=== PATIENT | female | born 1950 | race Caucasian/White ===

== ENCOUNTER 2018-09-09 09:05 | Outpatient (CLI) | payer BC ==
[2018-09-09 10:05] LABS: Mean Corpuscular HGB CONC 33.9 g/dL (32.0-36.0); Mean Corpuscular Hemoglobin 31.9 pg (27.0-31.0); Mean Platelet Volume 7.5 fL (7.4-10.4); Platelet Count 252 thou/uL (130-400); RBC Distribution Width 11.6 % (11.5-14.5); Red Blood Cell (RBC) Count 4.07 mill/uL (4.20-5.40); White Blood Cell (WBC) Count 5.8 thou/uL (4.8-10.8)
[2018-09-09 10:18] LABS: Anion Gap 13 mmol/L (10-20); BUN (Urea Nitrogen) 25 mg/dL (9.8-20.1); Calc. Creatinine Clearance 0 mL/min (70-130); Calcium 9.4 mg/dL (7.8-10.44); Carbon Dioxide 28 mmol/L (23-31); Chloride 104 mmol/L (98-107); Estimated GFR-MDRD 81; Glucose 91 mg/dL (80-115); Potassium 4.1 mmol/L (3.5-5.1); Sodium 141 mmol/L (136-145)
--- NOTE | 2018-09-10 07:34 | EKG ---
Test Reason : Blood Pressure : / mmHG Vent. Rate : 081 BPM Atrial Rate : 081 BPM P-R Int : 158 ms QRS Dur : 084 ms QT Int : 374 ms P-R-T Axes : 078 052 038 degrees QTc Int : 434 ms Normal sinus rhythm Normal ECG When compared with ECG of 01-AUG-2010 08:14, Nonspecific T wave abnormality, improved in Inferior leads Nonspecific T wave abnormality no longer evident in Lateral leads Confirmed by SHAHNAZ NEVES ([id number]) on 09/10/2018 7:33:34 AM Referred By: QUAN Confirmed By:SHAHNAZ NEVES
== END 2018-09-09 09:06 | disposition home or self-care (01) ==
LOC: LABBT 09:05
PROVIDERS: ATTEND Neurological Surgery
DX: Z01.818 Encounter for other preprocedural examination (principal); M48.062 Spinal stenosis, lumbar region with neurogenic claudication
CPT/HCPCS: 80048; 85027; 93005; 93010

== ENCOUNTER 2018-09-17 06:20 | Inpatient (IN) | payer BC ==
[2018-09-17] MEDS ORDERED: CEFAZOLIN 2 GM/50 ML BAG ONE (06:43)
[2018-09-17] MEDS ORDERED: Fentanyl 100 MCG/2 ML VIAL ONE ×2 (07:00)
[2018-09-17] MEDS ORDERED: Midazolam HCl 2 mg/2 ml Vial ONE (07:24)
[2018-09-17] MEDS ORDERED: HYDROmorphone 2 MG/ML VIAL ONE (07:25)
[2018-09-17] MEDS ORDERED: Ondansetron HCl/PF 4 MG/2 ML Vial IVP PRN (08:33)
[2018-09-17] MEDS ORDERED: Promethazine HCl 25 MG/ML VIAL SLOW IVP PRN (08:33)
[2018-09-17] MEDS ORDERED: HYDROmorphone 2 MG/ML VIAL SLOW IVP PRN (08:33)
[2018-09-17] MEDS ORDERED: PACU-Morphine 4MG/ML VIAL SLOW IVP PRN (08:33)
[2018-09-17] MEDS ORDERED: Morphine Sulfate 2 MG/ML SYRINGE SLOW IVP PRN (08:33)
[2018-09-17] MEDS ORDERED: Meperidine HCl/PF 25 MG/ML VIAL SLOW IVP PRN (08:33)
[2018-09-17] MEDS ORDERED: Promethazine HCl 25 MG/ML VIAL IM PRN ×2 (08:33→10:44)
[2018-09-17] MEDS ORDERED: HYDROcodone/Acetaminophen 10/325 mg Tablet PO PRN (10:44)
[2018-09-17] MEDS ORDERED: Mag-Al 1200 mg/1200 mg/30 ML UDCUP PO PRN (10:44)
[2018-09-17] MEDS ORDERED: Milk Of Magnesia 30 ML UDCUP PO PRN (10:44)
[2018-09-17] MEDS ORDERED: traMADol HCl 50 MG TAB PO PRN (10:44)
[2018-09-17] MEDS ORDERED: diphenhydrAMINE 50 MG/ML VIAL IVP PRN (10:44)
[2018-09-17] MEDS ORDERED: Morphine 4 MG/ML VIAL SLOW IVP PRN (10:44)
[2018-09-17] MEDS ORDERED: Promethazine HCl 12.5 MG SUPP PR PRN (10:44)
[2018-09-17] MEDS ORDERED: diphenhydrAMINE 25 MG CAP PO PRN (10:44)
[2018-09-17] MEDS ORDERED: tiZANidine HCl 4 MG TAB PO PRN (10:44)
--- NOTE | 2018-09-17 10:52 | OP ---
DATE OF PROCEDURE: 09/17/2018 FUDGE [employer]ANDY MAKER: Adrián. PROCEDURE PERFORMED: L4 through S1 laminectomy. DESCRIPTION OF PROCEDURE: The patient was brought to the operating room and intubated. She was rolled in a prone position on gel-filled chest rolls. An incision was made exposing L4 through S1 and level was confirmed by x-ray. She has a transitional S1 segment. We performed L4-L5 and L5-S1 decompressive laminectomies, completely decompressing the interspaces. At the L5-S1 level, the dura was completely attenuated and thinned in multiple places with gross breaches of the dura in at least one central location. This could not be sewn, as efforts to sew this primarily resulted in thinned edges of the dura that would not hold stitches. Gelfoam was then placed in the durotomy, reinforced with DuraSeal fibrin sealant. The wound was extensively irrigated and maximum hemostasis was secured. Vancomycin powder was applied and the wound was closed in anatomic layers. Job ID: [id number]
[2018-09-17] MEDS: Sodium Chloride 0.9% 1,000 ML IV SCH (11:26)
[2018-09-17] MEDS ORDERED: Prevnar 13-Val Conj/PF 0.5 ML SYRINGE IM ONE (12:00)
[2018-09-17] MEDS: CEFAZOLIN 2 GM/50 ML-DEXTROSE 2 GM in Premix Bag 1 BAG IVPB SCH ×2 (14:15→21:33)
[2018-09-17] MEDS: HYDROcodone/Acetaminophen 10/325 mg Tablet PO PRN (16:03)
[2018-09-17] MEDS ORDERED: Ondansetron PF 4 MG/2 ML Vial ONE (20:22)
[2018-09-17] MEDS ORDERED: Glycopyrrolate 0.2 MG/ML 5 ML SYRINGE ONE (20:22)
[2018-09-17] MEDS ORDERED: Ketorolac Tromethamine 30 MG/ML VIAL ONE (20:22)
[2018-09-17] MEDS ORDERED: Lidocaine 1% PF 5 ML VIAL ONE (20:22)
[2018-09-17] MEDS ORDERED: Dexamethasone 20 MG/5 ML VIAL ONE (20:22)
[2018-09-17] MEDS ORDERED: PROPOFOL 200 MG/20 ML VIAL ONE (20:22)
[2018-09-18] MEDS: Sodium Chloride 0.9% 1,000 ML IV SCH ×2 (01:08→14:59)
[2018-09-18] MEDS: HYDROcodone/Acetaminophen 10/325 mg Tablet PO PRN (04:16)
[2018-09-18] MEDS: Ondansetron ODT 4 MG TAB SL PRN (10:14)
[2018-09-18] MEDS: Promethazine 25 MG TAB PO PRN (14:59)
[2018-09-18] MEDS: traMADol HCl 50 MG TAB PO PRN (15:02)
--- NOTE | 2018-09-19 01:37 | PRG ---
DATE OF SERVICE: 09/18/2018 SUBJECTIVE: Ms. Washington is doing reasonably well. She is ambulating without assistance and her leg function is quite good. She is having significant postural headache and nausea. We will continue to manage this conservatively. Continue to focus on ambulation. Anticipate she will go home later today or tomorrow. Job ID: [id number]
[2018-09-19] MEDS: Sodium Chloride 0.9% 1,000 ML IV SCH ×2 (03:26→16:32)
[2018-09-19] MEDS: Promethazine 25 MG TAB PO PRN ×2 (03:26→09:25)
[2018-09-19] MEDS: traMADol HCl 50 MG TAB PO PRN ×3 (03:29→15:42)
[2018-09-19] MEDS: HYDROcodone/Acetaminophen 10/325 mg Tablet PO PRN (23:16)
[2018-09-20] MEDS: HYDROcodone/Acetaminophen 10/325 mg Tablet PO PRN ×2 (03:44→08:46)
[2018-09-20] MEDS: Sodium Chloride 0.9% 1,000 ML IV SCH (03:44)
--- NOTE | 2018-09-20 07:32 | DIS ---
DATE OF ADMISSION: 09/17/2018 DATE OF DISCHARGE: 09/20/2018 HOSPITAL COURSE: The patient is a 68-year-old female, status post L4 to S1 laminectomy for lumbar stenosis. Her surgery was complicated by small CSF leak. This was repaired in roughly. Postoperatively, the patient was transitioned to the Med/Surg floor, where she was monitored closely and localized the pain control. The patient did have significant postural headache and nausea and vomiting over the first day, but this improved during her admission course. The patient initially had a small amount of serous drainage in the incision, but this also improved during her admission. I am seeing the patient at the bedside this morning. She is awake, alert, in no acute distress. She has free active range of motion of all extremities. She has no focal neurologic deficits. She has a steady gait. There is just a tiny amount of serous drainage on the dressing, which has been there overnight. I do not see any active drainage from her incision. We will plan to dismiss the patient to home. She has been prescribed Sarepta, Zanaflex, Keflex, and Zofran. I have discussed home care precautions. Job ID: [id number]
[2018-09-20 08:42] VITALS: BP 127/76; TEMP 98
[2018-09-20] MEDS: Ondansetron ODT 4 MG TAB SL PRN (08:46)
== END 2018-09-20 09:04 | disposition home or self-care (01) | DRG 516 ==
LOC: SDC 06:20 → SURG A 09:55 → OBSVTOIN 09:55
PROVIDERS: ADMIT Neurological Surgery; ATTEND Neurological Surgery
PROC: 01NB0ZZ Release Lumbar Nerve, Open Approach (ICD-10-PCS; principal; 2018-09-17)
DX: M48.062 Spinal stenosis, lumbar region with neurogenic claudication (principal); G96.0 Cerebrospinal fluid leak; I10 Essential (primary) hypertension
CPT/HCPCS: 76001; G8978-GP-CL; G8979-GP-CJ; J1100; J1170; J1885; J2001; J2250; J2270; J2405; J2550; J2704; J3010; J3370; Q0162

== ENCOUNTER 2018-10-28 11:40 | Emergency (ER) | payer BC, MEDICARE ==
[2018-10-28 13:31] LABS: #Eosinphils 0.1 thou/uL (0.0-0.7); #Lymphocytes 0.9 thou/uL (1.20-3.40); #Monocytes 0.4 thou/uL (0.11-0.59); #Neutrophils 5.9 thou/uL (1.40-6.50); %Basophils 0.6 % (0.0-1.0); %Eosinophils 1.7 % (0.0-10.0); %Lymphocytes 12.6 % (21.0-51.0); %Monocytes 5.7 % (0.0-10.0); %Neutrophils 79.5 % (42.0-75.0); Mean Corpuscular HGB CONC 32.9 g/dL (32.0-36.0); Mean Corpuscular Hemoglobin 30.9 pg (27.0-31.0); Mean Corpuscular Volume 93.9 fL (78.0-98.0); Mean Platelet Volume 7.4 fL (7.4-10.4); Platelet Count 309 thou/uL (130-400); RBC Distribution Width 11.8 % (11.5-14.5); White Blood Cell (WBC) Count 7.4 thou/uL (4.8-10.8)
[2018-10-28 13:51] LABS: ALT (SGPT) 15 U/L (8-55); AST (SGOT) 18 U/L (5-34); Alkaline Phosphatase 90 U/L (40-150); Anion Gap 14 mmol/L (10-20); BUN (Urea Nitrogen) 17 mg/dL (9.8-20.1); Bilirubin, Total 0.9 mg/dL (0.2-1.2); Calc. Creatinine Clearance 0 mL/min (70-130); Calcium 10.2 mg/dL (7.8-10.44); Carbon Dioxide 29 mmol/L (23-31); Chloride 101 mmol/L (98-107); Estimated GFR-MDRD 78; Globulin 2.6 g/dL (2.4-3.5); Glucose 104 mg/dL (80-115); Potassium 4.3 mmol/L (3.5-5.1); Protein, Total 7.6 g/dL (6.0-8.3); Sodium 140 mmol/L (136-145)
--- NOTE | 2018-10-28 14:34 | CT ---
NONCONTRAST CT OF THE LUMBAR SPINE: Date: 10/28/18 INDICATION: Back pain with a knot on the back for approximately 1 month after surgery. Patient reports pain radia ting into head and feeling faint. COMPARISON: None. FINDINGS: There are laminectomy defects at the L5 and S1 vertebral level. There is bilobed fluid density collec tion seen posterior to the laminectomy defects measuring approximately 11.3 x 9.5 cm in size which ma y reflect sequelae of CSF leak or pseudomeningocele. There is a fractured spinous process of L4. 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 There is a well corticated fo cus of osteolysis involving the left posterolateral aspect of L4 which is nonspecific. This may refle ct an area of small Schmorl's node herniation or surgical defect. Visualized retroperitoneum is otherwise unremarkable appearing. IMPRESSION: 1. Large bilobed fluid density collection seen protruding posteriorly from the laminectomy defect at L5 and S1 into the midline post lumbar soft tissues, suspicious for CSF leak versus pseudomeningocel e. The collection measures 11.3 x 9.5 cm in greatest craniocaudad and AP dimensions, respectively. Ne urosurgical consultation is recommended. 2. Well corticated lucency involving left posterolateral aspect of L4 may reflect sequelae of prior surgery or may reflect sequelae of erosion from an adjacent left neural foramina mass such as a nerve sheath tumor. Recommend consideration for a MRI of the lumbar spine with and without contrast for ad ditional characterization. POS: CET
== END 2018-10-28 18:20 | disposition home or self-care (01) ==
LOC: ERS 11:40
DX: G96.19 Other disorders of meninges, not elsewhere classified (principal); I10 Essential (primary) hypertension
CPT/HCPCS: 36415; 72131; 80053; 85025; 85652; 86140